=== PATIENT | female | born 1950 | race Caucasian/White ===

== ENCOUNTER 2022-05-21 13:30 | Outpatient (RCR) | payer OTHER, SELFPAY ==
--- NOTE | 2022-05-30 09:51 | HP.OTFCE_ITS ---
Floor (Occasional 1-33% of Day): 5# Floor (Frequent 34-66% of Day): NA Floor (Constant 67-100% of Day): NA Floor PDL: Sedentary Knee (Occasional 1-33% of Day): 10# Knee PDL: Sedentary Waist (Occasional 1-33% of Day): 10# Waist (Frequent 34-66% of Day): NA Waist (Constant 67-100% of Day): NA Waist PDL: Sedentary Shoulder (Occasional 1-33% of Day): 10# Shoulder (Frequent 34-66% of Day): NA Shoulder (Constant 67-100% of Day): NA Shoulder PDL: Sedentary Overhead (Occasional 1-33% of Day): 5# Overhead (Frequent 34-66% of Day): NA Overhead (Constant 67-100% of Day): NA Overhead PDL: Sedentary Comments: pt demo overhead lift with left UE only. overhead and from floor levels is less than sedentary physical demand level. Knee and waist and shoulder level lifts are Sedentary physical demand level Bending: Occasional Ability (1-33% of day) Comments: with external support Squatting: No Ablility (0% of day) Comments: pt refused due to knee pain Kneeling: No Ablility (0% of day) Comments: pt refused due to knee pain Reaching out: Occasional Ability (1-33% of day) Reaching up: Occasional Ability (1-33% of day) Comments: left UE only right UE no ability Sitting: Frequent Ability (34-66% of day) Walking: Occasional Ability (1-33% of day) Standing: Occasional Ability (1-33% of day) Duration Sedentary Sedentary Light Light Light Medium Medium Medium Heavy Very Heavy Heavy Occasional (0-33% of day) Frequent (34-66% of day) Constant (67-100% of day) 10 # Negligible Negligible 15 # 8 # Negligible 20 # 10# Negli. 35 # 18 # 7 # 50 # 25 # 10 # 75 # 100 # >100 # 38 # 50 # >50 # 15 # 20 # >20 # Weight:: 82.554 kg Hand Dominance: Right Medical History Including Restrictions: pt states she was in good health until she suffered a fall at work 05/23/21. pt states she went to ER following her fall. pt went to and conservative treatment was given- pt did have Physical therapy at a facility in [place] 2x week for about 22 weeks of therapy. She states she noticed gains in her forearm motion and she has pain with some tasks. 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 pt denies any other health issues notes sent report right elbow contracture. overweight. right knee pain Symptoms: sleep interruption. pain in right arm. loss of strength. right knee pain Pain: Pt states she has achy pain at the elbow and her elbow is tender- pt states current pain level is 5/10. pt states she takes Tylenol. 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 pt states she push/pull not more lifting- pt states she was unable to return to her position after she had a right UE injury.pt has retired and feels she might want a chief librarian circulation department job and would like to know what she can do. 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 in getting in and out of her home. Pt states she has tub/shower combination and currently IND. with bathing/dressing, cooking and laundry. pt states her friend will run the sweeper and helps with grocery shopping. Drives IND. ROM: right shoulder flex 80* left 165. right elbow -10/100 ( with pain). right Forearm supination/pronation EFL Strength: right shoulder flexion peak force 5# extension 11# left flexion 15# extension 12#. right elbow Flexion 5# extension 11# left flexion 13# extension 15#. right hip flexion peak force 13# left 15#. right hamstring 15# quad 15# left hamstring 20# quad 15#. pt demo fair strength in LE and right UE fair- due to pain Right [employer] Lead Strength Average: 21.66 Right [employer] Lead Strength Percentile: pts age is outside the norms to get % for her age Left [employer] Lead Strength Average: 48.33 Left [employer] Lead Strength Percentile: pts age is outside the norms to get % for her age Right Lateral Pinch Average: 4.00 Right Lateral Pinch Percentile: pts age is outside the norms to get % for her age Left Lateral Pinch Average: 8.00 Left Lateral Pinch Percentile: pts age is outside the norms to get % for her age Right Tripod Pinch Average: 4.00 Right Tripod Pinch Percentile: pts age is outside the norms to get % for her age Left Tripod Pinch Average: 8.00 Comments: resting heart rate 62 Sensation: Denies deficits Fine Motor: Denies deficits Balance: functional reach test = 20. The Functional Reach Test is a single item test. developed as a quick screen for balance. problems in older adults. Interpretation: A score of 6 or less indicates a significant increased risk for falls. A score between 6-10 inches indicates a moderate risk for falls. Age related norms for the functional reach test: Women age tested in inches. 20- 40yrs 16.7 ? 1.9 14.6 ? 2.2. 41-69yrs 14.9 ? 2.2 13.8 ? 2.2. 70-87yrs 13.2 ? 1.6 10.5 ? 3.5 Bending: pt demo the ability to bend forward 3/3x, 10/10x needed rest break of 1 min followed with 10/10x rapidly with use of external support. pt can bend on a occasional ability with use of external support. heart rate 56 Squatting: Pt refused states she does not squat unable due to right knee pain Kneeling: Pt refused states her right knee is too painful pt refused to perform Reaching out/up: pt demo the ability to reach out 3/3x, 10/10x and 10/10x rapidly ( pt shoulder flex became less and less ROM ). pt states she feels shaky feels weak. pt demo the ability to reach up with right UE in limited motion 3/3x and left UE WFL. pt demo the ability to reach up with right UE in limited motion 10/10x and left WFL. heart rate 58 following. pt demo the ability to reach up with right UE in limited motion 10/10x rapidly left WFL. pt can reach out right and left at occasional ability. pt can reach up left at o ccasional ability. right unable due to limited ROM Walking: pt demo the ability to ambulate 12 min with a antalgic gait pattern stating her right knee is very painful its killing me 05/12- pt states she will be having a knee replacement in the next few months. pt can ambulate on occasional ability. Standing: pt states she can stand about 15 min without difficulty while washing dishes- pt demo the ability to stand for this therapist 8 min while shifting body weight pt can stand on a occasional ability to sift body weight Sitting: pt demo the ability to sit for 30 min with no apparent and expressed discomfort- pt can sit on a frequent ability. Climbing Stairs: Pt refused climbing stairs due to right knee pain (states she is getting cortisone shot next month) Floor Lift: Pt demo the ability to lift 5# maximally from floor level -states he feels a pulling in her elbow with lift Knee Lift: Pt demo the ability to lift 10# maximally from floor level -states he feels a pulling in her elbow with lift Waist Lift: Pt demo the ability to lift 10# maximally from floor level -states he feels a pulling in her elbow with lift Shoulder Lift: pt demo the ability to lift 5# maximally from this level- Overhead Lift: no ability with right UE. left UE only 5# sing arm lift Carrying: pt demo the ability to carry 10# for 10 feet with fair ability Comments: pt has not reveled an injury to her shoulder- pt unsure what limits right shoulder ROM see Dr. driscoll for more detailed information
--- NOTE | 2022-05-30 09:51 | HP.OTFCE.D ---
FCE D/C Summary - Discharge OG DIMAS was seen for a one time visit for an FCE on 05/21/22 and is discharged.
== END 2022-05-21 19:00 | disposition home or self-care (01) ==
LOC: OT 13:30
PROVIDERS: PCP Nurse Practitioner Family; Referring Provider Orthopaedic Surgery; Visit Provider Orthopaedic Surgery
DX: S52.121D Displaced fracture of head of right radius, subsequent encounter for closed fracture with routine healing (principal)
CPT/HCPCS: 97750